=== PATIENT | male | born 1960 | race Two or more races ===

== ENCOUNTER 2017-10-06 23:03 | Emergency (ER) | payer OTHER ==
[~2017-10-06] VITALS: Ht 172.7 cm; Wt 78.9 kg
[2017-10-06] MEDS ORDERED: LOPRESSOR5 MG/5 ML (23:15)
[2017-10-07] MEDS ORDERED: KETO10TA2 PO (00:39)
== END 2017-10-07 01:25 | disposition home or self-care (01) ==
LOC: ER 23:03
DX: M25.421 Effusion, right elbow (principal)